=== PATIENT | male | born 1980 ===

== ENCOUNTER 2018-11-02 00:31 | Observation (INO) | payer MEDICAID ==
[2018-11-02 00:42] VITALS: BMI 26.6
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
[2018-11-02] MEDS ORDERED: Sodium Chloride 0.9% 1,000 ML IV SCH (01:15)
[2018-11-02 01:55] LABS: HEMOGLOBIN 14.1 g/dL (14.0-18.0); MEAN CELL VOLUME 86.5 fl (80.0-105.0); MEAN CORPUSCULAR HEMOGLOBIN 28.9 pg (25.0-35.0); MEAN CORPUSCULAR HGB CONC 33.4 g/dl (31.0-37.0); MEAN PLATELET VOLUME 8.6 fl (7.0-11.0); RBC 4.88 10^6/uL (3.5-6.1); RED CELL DISTRIBUTION WIDTH 12.6 % (11.5-14.5); WHITE BLOOD COUNT 9.1 10^3/uL (4.5-11.0)
[2018-11-02 02:19] LABS: ALB/GLOB RATIO 1.2 (1.1-1.8)
[2018-11-02 02:23] LABS: ALBUMIN 4.2 g/dL (3.0-4.8); ALT/SGPT 43 U/L (7-56); AST/SGOT 29 U/L (17-59); BLOOD UREA NITROGEN 22 mg/dL (7-21); CALCIUM 9.1 mg/dL (8.4-10.5); GFR NON-AFRICAN AMERICAN > 60; LIPASE 118 U/L (23-300)
[2018-11-02] MEDS ORDERED: Iohexol 350 MG/100 ML VIAL ONE (02:28)
[2018-11-02] MEDS ORDERED: metroNIDAZOLE IV 500 mg/100 ml 500 MG/100 ML BAG IV STA (03:24)
[2018-11-02] MEDS ORDERED: cefTRIAXone 1 gm 1 GM/100 ML BAG IV STA (03:24)
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
[2018-11-02] MEDS: Pantoprazole 40 mg EC Tab PO SCH (05:05)
[2018-11-02] MEDS: Sodium Chloride 0.9% 1,000 ML IV SCH ×3 (05:06→21:16)
[2018-11-02] MEDS: metroNIDAZOLE IV 500 mg/100 ml 500 MG/100 ML BAG IVPB SCH ×3 (05:11→21:16)
[2018-11-02 05:53] LABS: PH,URINE 6.5 (4.7-8.0); URINE BILIRUBIN NEGATIVE (NEGATIVE); URINE BLOOD NEGATIVE (NEGATIVE); URINE GLUCOSE (UA) NEGATIVE (NEGATIVE); URINE LEUKOCYTE ESTERASE NEGATIVE Leu/uL (NEGATIVE); URINE PROTEIN NEGATIVE mg/dL (<30 mg/dL); URINE UROBILINOGEN 0.2 E.U./dL (<1 E.U./dL)
[2018-11-02 05:54] LABS: URINE APPEARANCE CLEAR (CLEAR); URINE COLOR YELLOW (YELLOW)
--- NOTE | 2018-11-02 10:02 | CT ---
Date of service: 11/02/2018 PROCEDURE: CT Abdomen and Pelvis with contrast HISTORY: abdominal pain COMPARISON: None. TECHNIQUE: Contrast dose: 100 cc of Omni 350 Radiation dose: Total exam DLP = 714.62 mGy-cm. This CT exam was performed using one or more of the following dose reduction techniques: Automated exposure control, adjustment of the mA and/or kV according to patient size, and/or use of iterative reconstruction technique. FINDINGS: LOWER THORAX: Unremarkable. LIVER: Unremarkable. No gross lesion or ductal dilatation. GALLBLADDER AND BILE DUCTS: Unremarkable. PANCREAS: Unremarkable. No gross lesion or ductal dilatation. SPLEEN: Unremarkable. ADRENALS: Unremarkable. No mass. KIDNEYS AND URETERS: Unremarkable. No hydronephrosis. No solid mass. VASCULATURE: Unremarkable. No aortic aneurysm. No aortic atherosclerotic calcification or mural plaque present. BOWEL: There is diverticulosis of the sigmoid and descending colon. There is mural thickening in the sigmoid colon consistent with mild colitis/diverticulitis. There are no inflammatory changes in the adjacent fat planes and no evidence of abscess formation. APPENDIX: Appendix removed PERITONEUM: Unremarkable. No free fluid. No free air. LYMPH NODES: Unremarkable. No enlarged lymph nodes. BLADDER: Unremarkable. REPRODUCTIVE: Unremarkable. BONES: No acute fracture. OTHER FINDINGS: The report concurs with the preliminary [facility] report IMPRESSION: There is diverticulosis of the sigmoid and descending colon. There is mural thickening in the sigmoid colon consistent with mild colitis/diverticulitis. There are no inflammatory changes in the adjacent fat planes and no evidence of abscess formation.
--- NOTE | 2018-11-02 17:10 | CARD ---
APPROVED REPORT Date of service: 11/02/2018 EKG Measurement Heart [id number] MS [id number] <Conclusion> Normal sinus rhythm Normal ECG
--- NOTE | 2018-11-02 17:23 | CARD ---
APPROVED REPORT Date of service: 11/02/2018 EKG Measurement Heart [id number] MA [id number] <Conclusion> Normal sinus rhythm Normal ECG
[2018-11-03] MEDS: Pantoprazole 40 mg EC Tab PO SCH (05:14)
--- NOTE | 2018-11-03 05:15 | CON ---
DATE: 11/02/2018 REASON FOR CONSULTATION: Colitis, diverticulitis, and GI evaluation. HISTORY OF PRESENT ILLNESS: This 38-year-old patient has chronic intermittent abdominal pain close to a year. The patient was in [place], when he had acute worsening of the symptoms complaining of right lower quadrant pain. The patient was admitted to the hospital and he had appendectomy about [address] scan was reviewed. IMPRESSION: This 38-year-old patient admitted with; 1. Colitis versus diverticulitis. 2. The patient did have status post appendicectomy done 2 weeks ago. RECOMMENDATIONS: 1. We would recommend to continue the antibiotics. 2. We will obtain record from the last hospitalization regarding the pathology of the appendix. 3. The patient would need elective colonoscopy and endoscopic evaluation to further evaluate. Thank you very much for allowing us to participate in the care of the patient. Reg Becerra MD
[2018-11-03] MEDS: metroNIDAZOLE IV 500 mg/100 ml 500 MG/100 ML BAG IVPB SCH (05:16)
[2018-11-03 06:49] LABS: BASO # 0.01 K/mm3 (0.0-2.0); BASO % 0.1 % (0.0-3.0); EOS # 0.2 (0.0-0.7); EOS % 2.3 % (1.5-5.0); LYMPH # 2.6 (1.2-3.4); MEAN CELL VOLUME 86.6 fl (80.0-105.0); MEAN CORPUSCULAR HEMOGLOBIN 28.2 pg (25.0-35.0); MEAN CORPUSCULAR HGB CONC 32.6 g/dl (31.0-37.0); MEAN PLATELET VOLUME 8.4 fl (7.0-11.0); MONO # 0.4 (0.1-0.6); MONO % 6.1 % (1.0-6.0); RBC 4.61 10^6/uL (3.5-6.1); RED CELL DISTRIBUTION WIDTH 12.5 % (11.5-14.5); WHITE BLOOD COUNT 7.3 10^3/uL (4.5-11.0)
[2018-11-03 06:52] LABS: INR 1.21; PARTIAL THROMBOPLASTIN TIME 33.8 Seconds (26.9-38.3); PROTHROMBIN TIME 13.7 SECONDS (9.4-12.5)
[2018-11-03 07:12] LABS: ALB/GLOB RATIO 1.2 (1.1-1.8); ALBUMIN 3.7 g/dL (3.0-4.8); ALT/SGPT 35 U/L (7-56); AST/SGOT 35 U/L (17-59); BLOOD UREA NITROGEN 12 mg/dL (7-21); GFR NON-AFRICAN AMERICAN > 60
[2018-11-03 07:56] VITALS: BP 100/63; PULSE 52; RESP 16; TEMP 98.2; O2SAT 98
[2018-11-03] MEDS: Sodium Chloride 0.9% 1,000 ML IV SCH (09:39)
[2018-11-03] MEDS ORDERED: cefTRIAXone 1 gm 1 GM/100 ML BAG IVPB SCH (10:00)
--- NOTE | 2018-11-03 14:13 | CP.PCM.DIS ---
<DeepceeKandy - Last Filed: 11/03/18 14:02> Provider - Provider Date of Admission: 11/02/18 03:29 Attending physician: Thomas Montanez MD Primary care physician: Dr. Neal Consults: 11/02/18 09:43 Gastroenterology Consult Routine Comment: Consulting Provider: Reg Becerra V Consulting Physician: Reg Becerra V Reason for Consult: acute diverticulitis Time Spent in preparation of Discharge (in minutes): 60 Diagnosis - Discharge Diagnosis (1) Acute diverticulitis Status: Acute Hospital Course - Lab Results Lab Results: Micro Results 11/02/18 03:38 Blood Blood Culture - Preliminary NO GROWTH AFTER 24 HOURS 11/02/18 03:20 Blood Blood Culture - Preliminary NO GROWTH AFTER 24 HOURS Most Recent Lab Values WBC 7.3 10^3/uL (4.5-11.0) 11/03/18 06:10 RBC 4.61 10^6/uL (3.5-6.1) 11/03/18 06:10 Hgb 13.0 g/dL (14.0-18.0) L 11/03/18 06:10 Hct 39.9 % (42.0-52.0) L 11/03/18 06:10 MCV 86.6 fl (80.0-105.0) 11/03/18 06:10 MCH 28.2 pg (25.0-35.0) 11/03/18 06:10 MCHC 32.6 g/dl (31.0-37.0) 11/03/18 06:10 RDW 12.5 % (11.5-14.5) 11/03/18 06:10 Plt Count 358 10^3/uL (120.0-450.0) 11/03/18 06:10 MPV 8.4 fl (7.0-11.0) 11/03/18 06:10 Neut % (Auto) 55.5 % (50.0-68.0) 11/03/18 06:10 Lymph % (Auto) 36.0 % (22.0-35.0) H 11/03/18 06:10 [place] % (Auto) 6.1 % (1.0-6.0) H 11/03/18 06:10 Eos % (Auto) 2.3 % (1.5-5.0) 11/03/18 06:10 Baso % (Auto) 0.1 % (0.0-3.0) 11/03/18 06:10 Lymph # (Auto) 2.6 (1.2-3.4) 11/03/18 06:10 [place] # (Auto) 0.4 (0.1-0.6) 11/03/18 06:10 Eos # (Auto) 0.2 (0.0-0.7) 11/03/18 06:10 Baso # (Auto) 0.01 K/mm3 (0.0-2.0) 11/03/18 06:10 Absolute Neuts (auto) 4.03 (1.4-6.5) 11/03/18 06:10 PT 13.7 SECONDS (9.4-12.5) H 11/03/18 06:10 INR 1.21 11/03/18 06:10 APTT 33.8 Seconds (26.9-38.3) 11/03/18 06:10 Sodium 140 mmol/L (132-148) 11/03/18 06:10 Potassium 4.0 mmol/L (3.6-5.0) 11/03/18 06:10 Chloride 108 mmol/L (98-107) H 11/03/18 06:10 Carbon Dioxide 26 mmol/L (21-33) 11/03/18 06:10 Anion Gap 10 (10-20) 11/03/18 06:10 BUN 12 mg/dL (7-21) 11/03/18 06:10 Creatinine 1.0 mg/dl (0.8-1.5) 11/03/18 06:10 Est GFR ( Amer) > 60 11/03/18 06:10 Est GFR (Non-Af Amer) > 60 11/03/18 06:10 Random Glucose 93 mg/dL (70-110) 11/03/18 06:10 Calcium 9.0 mg/dL (8.4-10.5) 11/03/18 06:10 Phosphorus 3.3 mg/dL (2.5-4.5) 11/03/18 06:10 Magnesium 1.9 mg/dL (1.7-2.2) 11/03/18 06:10 Total Bilirubin 1.1 mg/dL (0.2-1.3) 11/03/18 06:10 AST 35 U/L (17-59) 11/03/18 06:10 ALT 35 U/L (7-56) 11/03/18 06:10 Alkaline Phosphatase 92 U/L (38-126) 11/03/18 06:10 Troponin I < 0.01 ng/mL 11/02/18 08:00 Total Protein 6.8 g/dL (5.8-8.3) 11/03/18 06:10 Albumin 3.7 g/dL (3.0-4.8) 11/03/18 06:10 Globulin 3.1 gm/dL 11/03/18 06:10 Albumin/Globulin Ratio 1.2 (1.1-1.8) 11/03/18 06:10 Lipase 118 U/L (23-300) 11/02/18 01:36 Urine Color Yellow (YELLOW) 11/02/18 05:35 Urine Appearance Clear (CLEAR) 11/02/18 05:35 Urine pH 6.5 (4.7-8.0) 11/02/18 05:35 Ur Specific [place] 1.010 (1.005-1.035) 11/02/18 05:35 Urine Protein Negative mg/dL (<30 mg/dL) 11/02/18 05:35 Urine Glucose (UA) Negative mg/dL (NEGATIVE) 11/02/18 05:35 Urine Ketones Negative mg/dL (NEGATIVE) 11/02/18 05:35 Urine Blood Negative (NEGATIVE) 11/02/18 05:35 Urine Nitrate Negative (NEGATIVE) 11/02/18 05:35 Urine Bilirubin Negative (NEGATIVE) 11/02/18 05:35 Urine Urobilinogen 0.2 E.U./dL (<1 E.U./dL) 11/02/18 05:35 Ur Leukocyte Esterase Negative [place]/uL (NEGATIVE) 11/02/18 05:35 - Hospital Course Hospital Course: Kandy Coronado, PGY-1, Internal Medicine Discharge Summary for Dr. Montanez 38 year old male with past medical history of GERD presents status post appendicitis one week ago. Patient was constipated for 2 days and then had multiple episodes of diarrhea post taking laxatives over the weekend. Patient stopped laxatives and was subsequently constipated 2 days prior to presentation at the ER. Patient started to have left sided abdominal pain without radiation for 2 days prior to presentation. Abdominal CT showed acute sigmoid and descendi ng colon diverticulitis/colitis. As a result, patient was started on rocephin and flagyl. Patient was initially NPO and progressed to clear liquid diet, full liquid diet, and soft diet, which patient tolerated well. GI, Dr. Becerra, had no acute recommendations but recommended outpatient colonoscopy. Patient did not have any left sided abdominal pain today and was ready for discharge. Patient was deemed stable and ready for discharge. Patient was told to follow up with PCP within 7 days. Patient was told to follow up with GI, Dr. Becerra, for colonoscopy outpatient. Patient was told to take antibiotics for the next 12 days as prescribed. Patient was told to return to the emergency department if she had any new or concerning symptoms. This is a brief summary of the events that occurred at the hospital. Please refer to hospital documentation for more details. - Date & Time of H&P Date of H&P: 11/02/18 Time of H&P: 03:47 Discharge Exam - Head Exam Head Exam: ATRAUMATIC, NORMAL INSPECTION, NORMOCEPHALIC - Eye Exam Eye Exam: EOMI, PERRL - Neck Exam Neck exam: Full Rom - Respiratory Exam Respiratory Exam: Clear to PA & Lateral, NORMAL BREATHING PATTERN - Cardiovascular Exam Cardiovascular Exam: REGULAR RHYTHM, RRR - GI/Abdominal Exam GI & Abdominal Exam: Normal Bowel Sounds, Soft, Tenderness (right lower quadrant) - Extremities Exam Extremities exam: full ROM - Neurological Exam Neurological exam: Alert, CN II-XII Intact, Oriented x3 Discharge Plan - Discharge Medications Prescriptions: Cefuroxime Axetil [Cefuroxime] 500 mg PO BID 12 Days #24 tablet Metronidazole [Flagyl] 500 mg PO TID 12 Days #36 tablet - Follow Up Plan Condition: STABLE Disposition: HOME/ ROUTINE Instructions: Soft Diet, Pneumococcal Conjugate Vaccine (13-Valent), Diverticulitis, Influenza Virus Vaccine (Inactivated) Additional Instructions: Please follow up with your PCP within 7 days. Please follow up with GI doctor, Dr. Becerra, within 7 days for scheduling outpatient colonoscopy in 6-8 weeks. Please take cefuroximine and flagyl for 12 more days as prescribed. Please return to the emergency department if you have any new or concerning symptoms. Referrals: Reg Becerra MD [Medical Doctor] - <Thomas Montanez - Last Filed: 11/03/18 15:34> Provider - Provider Date of Admission: 11/02/18 03:29 Attending physician: Thomas Montanez MD Consults: 11/02/18 09:43 Gastroenterology Consult Routine Comment: Consulting Provider: Reg Becerra V Consulting Physician: Reg Becerra V Reason for Consult: acute diverticulitis Time Spent in preparation of Discharge (in minutes): 32 Hospital Course - Lab Results Lab Results: Micro Results 11/02/18 03:38 Blood Blood Culture - Preliminary NO GROWTH AFTER 24 HOURS 11/02/18 03:20 Blood Blood Culture - Preliminary NO GROWTH AFTER 24 HOURS Most Recent Lab Values WBC 7.3 10^3/uL (4.5-11.0) 11/03/18 06:10 RBC 4.61 10^6/uL (3.5-6.1) 11/03/18 06:10 Hgb 13.0 g/dL (14.0-18.0) L 11/03/18 06:10 Hct 39.9 % (42.0-52.0) L 11/03/18 06:10 MCV 86.6 fl (80.0-105.0) 11/03/18 06:10 MCH 28.2 pg (25.0-35.0) 11/03/18 06:10 MCHC 32.6 g/dl (31.0-37.0) 11/03/18 06:10 RDW 12.5 % (11.5-14.5) 11/03/18 06:10 Plt Count 358 10^3/uL (120.0-450.0) 11/03/18 06:10 MPV 8.4 fl (7.0-11.0) 11/03/18 06:10 Neut % (Auto) 55.5 % (50.0-68.0) 11/03/18 06:10 Lymph % (Auto) 36.0 % (22.0-35.0) H 11/03/18 06:10 [place] % (Auto) 6.1 % (1.0-6.0) H 11/03/18 06:10 Eos % (Auto) 2.3 % (1.5-5.0) 11/03/18 06:10 Baso % (Auto) 0.1 % (0.0-3.0) 11/03/18 06:10 Lymph # (Auto) 2.6 (1.2-3.4) 11/03/18 06:10 [place] # (Auto) 0.4 (0.1-0.6) 11/03/18 06:10 Eos # (Auto) 0.2 (0.0-0.7) 11/03/18 06:10 Baso # (Auto) 0.01 K/mm3 (0.0-2.0) 11/03/18 06:10 Absolute Neuts (auto) 4.03 (1.4-6.5) 11/03/18 06:10 PT 13.7 SECONDS (9.4-12.5) H 11/03/18 06:10 INR 1.21 11/03/18 06:10 APTT 33.8 Seconds (26.9-38.3) 11/03/18 06:10 Sodium 140 mmol/L (132-148) 11/03/18 06:10 Potassium 4.0 mmol/L (3.6-5.0) 11/03/18 06:10 Chloride 108 mmol/L (98-107) H 11/03/18 06:10 Carbon Dioxide 26 mmol/L (21-33) 11/03/18 06:10 Anion Gap 10 (10-20) 11/03/18 06:10 BUN 12 mg/dL (7-21) 11/03/18 06:10 Creatinine 1.0 mg/dl (0.8-1.5) 11/03/18 06:10 Est GFR ( Amer) > 60 11/03/18 06:10 Est GFR (Non-Af Amer) > 60 11/03/18 06:10 Random Glucose 93 mg/dL (70-110) 11/03/18 06:10 Calcium 9.0 mg/dL (8.4-10.5) 11/03/18 06:10 Phosphorus 3.3 mg/dL (2.5-4.5) 11/03/18 06:10 Magnesium 1.9 mg/dL (1.7-2.2) 11/03/18 06:10 Total Bilirubin 1.1 mg/dL (0.2-1.3) 11/03/18 06:10 AST 35 U/L (17-59) 11/03/18 06:10 ALT 35 U/L (7-56) 11/03/18 06:10 Alkaline Phosphatase 92 U/L (38-126) 11/03/18 06:10 Troponin I < 0.01 ng/mL 11/02/18 08:00 Total Protein 6.8 g/dL (5.8-8.3) 11/03/18 06:10 Albumin 3.7 g/dL (3.0-4.8) 11/03/18 06:10 Globulin 3.1 gm/dL 11/03/18 06:10 Albumin/Globulin Ratio 1.2 (1.1-1.8) 11/03/18 06:10 Lipase 118 U/L (23-300) 11/02/18 01:36 Urine Color Yellow (YELLOW) 11/02/18 05:35 Urine Appearance Clear (CLEAR) 11/02/18 05:35 Urine pH 6.5 (4.7-8.0) 11/02/18 05:35 Ur Specific [place] 1.010 (1.005-1.035) 11/02/18 05:35 Urine Protein Negative mg/dL (<30 mg/dL) 11/02/18 05:35 Urine Glucose (UA) Negative mg/dL (NEGATIVE) 11/02/18 05:35 Urine Ketones Negative mg/dL (NEGATIVE) 11/02/18 05:35 Urine Blood Negative (NEGATIVE) 11/02/18 05:35 Urine Nitrate Negative (NEGATIVE) 11/02/18 05:35 Urine Bilirubin Negative (NEGATIVE) 11/02/18 05:35 Urine Urobilinogen 0.2 E.U./dL (<1 E.U./dL) 11/02/18 05:35 Ur Leukocyte Esterase Negative [place]/uL (NEGATIVE) 11/02/18 05:35 Attending/Attestation - Attestation I have personally seen and examined this patient.: Yes I have fully participated in the care of the patient.: Yes I have reviewed all pertinent clinical information, including history, physical exam and plan: Yes Notes (Text): 11/03/18 15:27 Patient was seen and examined with director medical safety. 38 years old male SP recent appendectomy last week was admitted with left sided abdominal pain without radiation for 2 days prior to presentation. Abdominal CT showed acute sigmoid and descending colon diverticulitis/colitis. Patient was started on rocephin and flagyl. Patient was initially NPO and progressed to clear liquid diet, full liquid diet, and soft diet, which patient tolerated well. GI, Dr. Becerra, had no acute recommendations but recommended outpatient colonoscopy. Patient did not have any left sided abdominal pain today , he is af ebrile and is tolerating food. He will be discharged home on oral antibiotics and will follow up with GI . He will need Colonoscopy as out patient in 6-8 weeks. Management plan was discussed in detail with patient. Education was provided.
== END 2018-11-03 13:40 | disposition home or self-care (01) ==
LOC: ED 00:31 → ERH 03:29 → 5RNO 04:53
PROVIDERS: ADMIT Internal Medicine; ATTEND Internal Medicine
DX: K57.32 Diverticulitis of large intestine without perforation or abscess without bleeding (principal); K52.9 Noninfective gastroenteritis and colitis, unspecified; F12.90 Cannabis use, unspecified, uncomplicated; K21.9 Gastro-esophageal reflux disease without esophagitis; Z80.0 Family history of malignant neoplasm of digestive organs
CPT/HCPCS: 36415; 74177; 80053; 81003; 83690; 83735; 84100; 84484; 85025; 85027; 85610; 85730; 87040; 87045; 93005; 99284; G0378; J0696; J1885; J7030; Q9967

== ENCOUNTER 2018-11-09 00:16 | Emergency (ER) | payer MEDICAID | END 2018-11-09 05:41 | disposition home or self-care (01) | LOC: ED 00:16 ==